=== PATIENT | male | born 1970 | race Caucasian/White ===

== ENCOUNTER 2017-07-07 02:15 | Emergency (ER) | payer OTHER ==
[2017-07-07 02:29] VITALS: BP 148/93; PULSE 96; O2SAT 95
[2017-07-07] MEDS ORDERED: solu-MEDROL 125 MG IV ONE (02:41)
[2017-07-07] MEDS ORDERED: solu-MEDROL 125 MG ONE (02:44)
--- NOTE | 2017-07-07 02:48 | ERPHSYRPT ---
- History of Present Illness Source: patient Exam Limitations: no limitations Patient Subjective Stated Complaint: has been BG of 200s recently after med change. States was 323 this morning when he woke up Triage Nursing Assessment: c/o feeling hot, itching all over, BG at home 323 this morning, No c/o dizziness or nausea Physician History: ABOUT 90 MINUTES AGO PT AWOKE WITH PRURITUS AND DIFFUSE REDNESS; DENIES SHORTNESS OF AIR, CHEST PAIN, UNUSUAL FOODS EATEN. PT STATES HIS BLOOD GLUCOSE WAS 323 AT HOME. PT HAS BEEN DIAGNOSED WITH DM ABOUT 1.5 MONTHS AGO AND THE [facility] [place], PLACED PT ON HIS CURRENT MEDICATIONS AT THAT TIME. BEFORE 1.5 MONTHS AGO PT WAS ONLY TAKING IBUPROFEN PRN. Allergies/Adverse Reactions: No Known Drug Allergies Allergy (Unverified 07/07/17 02:37) Home Medications: Atorvastatin Calcium 1 tab PO DAILY 07/07/17 [History] Gabapentin 1 tab PO TID 07/07/17 [History] Losartan Potassium 0.5 tab PO DAILY 07/07/17 [History] Metformin HCl 1 tab PO BID 07/07/17 [History] Sildenafil Citrate [Viagra] 1 tab PO QDP PRN 07/07/17 [History] Hx Tetanus, Diphtheria Vaccination/Date Given: Yes Immunizations Up to Date: Yes - Review of Systems Constitutional: Other (ELEVATED BLOOD GLUCOSE), No Fever Respiratory: No Dyspnea Cardiac: No Chest Pain Abdominal/Gastrointestinal: No Nausea Skin: Pruritis, Rash All Other Systems: Reviewed and Negative - Past Medical History Neurological History: Peripheral Neuropathy Cardiac History: Hypertension Respiratory History: No Pertinent History Endocrine Medical History: Diabetes Type II Musculoskeletal History: No Pertinent History GI Medical History: No Pertinent History History: No Pertinent History Psycho-Social History: No Pertinent History Male Reproductive Disorders: No Pertinent History - Past Surgical History Past Surgical History: No - Social History Smoking Status: Current every day smoker Drug Use: none Patient Lives Alone: No - Nursing Vital Signs Nursing Vital Signs: Initial Vital Signs Pulse Rate 96 H 07/07/17 02:23 Respiratory Rate 20 07/07/17 02:23 Blood Pressure 148/93 07/07/17 02:23 O2 Sat by Pulse Oximetry 95 07/07/17 02:23 Pain Scale Pain Intensity 0 - Physical Exam General Appearance: alert Eye Exam: PERRL/EOMI Ears, Nose, Throat Exam: TMs normal, moist mucous membranes, other (MILD UVULA EDEMA) Neck Exam: normal inspection, full range of motion Respiratory Exam: normal breath sounds, lungs clear Cardiovascular Exam: normal heart sounds Gastrointestinal/Abdomen Exam: soft, normal bowel sounds Back Exam: normal range of motion Extremity Exam: No pedal edema Neurologic Exam: alert, cooperative Skin Exam: rash (MACULAR ERYTHEMA OF THE TRUNK, EXTREMITIES, NECK AND FACE; FEW HIVES OVER LOWER ABDOMEN.) SpO2 Interpretation: normal SpO2: 95 Oxygen Delivery: Room Air - Course Nursing assessment & vital signs reviewed: Yes Ordered Tests: Active Orders 24 hr Category Date Time Status IV Insertion STAT Care 07/07/17 02:41 Active CBC W DIFF Stat Lab 07/07/17 02:50 Completed CMP Stat Lab 07/07/17 02:50 Completed MAGNESIUM Stat Lab 07/07/17 02:50 Completed Medication Summary Generic Name Dose Route Start Last Admin Trade Name Freq PRN Reason Stop Dose Admin Insulin Human Regular 5 unit 07/07/17 03:33 Novolin R SQ 07/07/17 03:34 STAT ONE Magnesium Oxide 400 mg 07/07/17 10:00 Mag-Ox 400 PO 08/06/17 09:59 BID GAGAN Discontinued Medications Generic Name Dose Route Start Last Admin Trade Name Freq PRN Reason Stop Dose Admin Methylprednisolone Sodium Succinate 125 mg 07/07/17 02:41 07/07/17 02:56 Solu-Medrol 125 Mg IV 07/07/17 02:42 125 mg STAT ONE Administration Methylprednisolone Sodium Succinate Confirm 07/07/17 02:44 Solu-Medrol 125 Mg Administered 07/07/17 02:45 Dose 125 mg .ROUTE .STK-MED ONE Lab/Rad Data: Laboratory Result Diagrams 07/07/17 02:50 07/07/17 02:50 Laboratory Results 07/07/17 07/07/17 Range/Units 02:50 02:50 WBC 8.5 (4.0-10.5) K/mm3 RBC 5.46 (4.1-5.6) M/mm3 Hgb 15.6 (12.5-18.0) gm/dl Hct 45.7 (42-50) % MCV 83.7 (78-100) fl MCH 28.6 (26-32) pg MCHC 34.1 (32-36) g/dl RDW 13.0 (11.5-14.0) % Plt Count 296 (150-450) K/mm3 MPV 9.9 H (6-9.5) fl Gran % 54.9 (36.0-66.0) % Lymphocytes % 36.9 (24.0-44.0) % Monocytes % 7.6 (0.0-12.0) % Eosinophils % 0.5 (0.00-5.0) % Basophils % 0.1 (0.0-0.4) % Basophils # 0.01 (0-0.4) Sodium 134 L (136-145) mEq/L Potassium 3.8 (3.5-5.1) mEq/L Chloride 98 (98-107) mEq/L Carbon Dioxide 22.9 (21-32) mEq/L Anion Gap 16.7 H (5-15) MEQ/L BUN 12 (9-20) mg/dL Creatinine 1.04 (0.55-1.30) mg/dl Estimated GFR > 60 ML/MIN Glucose 317 H (70-110) MG/DL Calcium 8.6 (8.5-10.1) mg/dL Magnesium 1.6 L (1.8-2.4) mg/dL Total Bilirubin 0.20 (0.2-1.0) mg/dL AST 20 (15-37) U/L ALT 35 (12-78) U/L Alkaline Phosphatase 154 H (46-116) U/L Serum Total Protein 6.9 (6.4-8.2) gm/dL Albumin 3.6 (3.4-5.0) g/dL - Departure Time of Disposition: 03:38 Departure Disposition: Home Clinical Impression: ALLERGIC REACTION, DM, HTN, PN Condition: Stable Critical Care Time: No Referrals: JANNETH GLASGOW MD [Primary Care Provider] - Instructions: Hives Additional Instructions: FOLLOW UP WITH PRIVATE DOCTOR LATER TODAY FOR RECHECK AND MEDICATION EVALUATION. DO NOT TAKE ANY MEDICATIONS UNTIL YOUR PRIVATE DOCTOR IS SEEN TODAY. Prescriptions: Hydroxyzine HCl 25 mg [Atarax 25 mg] 25 mg PO Q4H PRN PRN #30 tablet PRN Reason: Itching Methylprednisolone Packet [Medrol Dosepack] 4 mg PO UD #1 pack
[2017-07-07 03:09] LABS: BASOPHIL % 0.1 % (0.0-0.4); Basophil (Absolute #) 0.01 (0-0.4); Eosinophil % 0.5 % (0.00-5.0); Eosinophil (Absolute #) 0.04 (0-0.5); Granulocyte Absolute (ANC) 4.67 (1.4-6.9); Granulocytes % 54.9 % (36.0-66.0); Hematocrit 45.7 % (42-50); Hemoglobin 15.6 gm/dl (12.5-18.0); Lymphocyte (Absolute #) 3.14 (1.0-4.6); Lymphocytes % 36.9 % (24.0-44.0); Mean Cell Volume 83.7 fl (78-100); Mean Corpuscular Hemoglobin 28.6 pg (26-32); Mean Corpuscular Hgb Concent. 34.1 g/dl (32-36); Mean Platelet Volume 9.9 fl (6-9.5); Monocyte (Absolute #) 0.65 (0.0-1.3); Monocytes % 7.6 % (0.0-12.0); Platelet Count 296 K/mm3 (150-450); Red Blood Count 5.46 M/mm3 (4.1-5.6); White Blood Count 8.5 K/mm3 (4.0-10.5)
[2017-07-07 03:29] LABS: ALBUMIN 3.6 g/dL (3.4-5.0); ALKALINE PHOSPHATASE 154 U/L (46-116); ANION GAP 16.7 MEQ/L (5-15); BLOOD UREA NITROGEN 12 mg/dL (9-20); CHLORIDE 98 mEq/L (98-107); Calcium 8.6 mg/dL (8.5-10.1); Carbon Dioxide 22.9 mEq/L (21-32); Creatinine 1 1.04 mg/dl (0.55-1.30); EST GLOMERULAR FILTRATION RATE > 60 ML/MIN; Glucose 317 MG/DL (70-110); MAGNESIUM 1.6 mg/dL (1.8-2.4); Potassium 3.8 mEq/L (3.5-5.1); SGOT/AST 20 U/L (15-37); SGPT/ALT 35 U/L (12-78); SODIUM 134 mEq/L (136-145); Total Protein 6.9 gm/dL (6.4-8.2)
[2017-07-07] MEDS ORDERED: NovoLIN R SQ ONE (03:33)
[2017-07-07] MEDS ORDERED: ATARAX 25 MG PO ONE (03:38)
[2017-07-07] MEDS ORDERED: NovoLIN R ONE (03:44)
[2017-07-07] MEDS ORDERED: MAG-OX 400 ONE (03:44)
[2017-07-07] MEDS ORDERED: ATARAX 25 MG ONE (03:44)
[2017-07-07] MEDS ORDERED: MAG-OX 400 PO SCH (10:00)
== END 2017-07-07 04:01 | disposition home or self-care (01) ==
LOC: ED 02:15
DX: T78.40XA Allergy, unspecified, initial encounter (principal); E11.9 Type 2 diabetes mellitus without complications; J18.9 Pneumonia, unspecified organism; I10 Essential (primary) hypertension; Z79.84 Long term (current) use of oral hypoglycemic drugs
CPT/HCPCS: 36000; 36415; 80053; 82962; 83735; 85025; 99283; J2930; A9270-GY